=== PATIENT | male | born 1975 | race Caucasian/White ===

== ENCOUNTER 2018-09-11 18:43 | Emergency (ER) | payer OTHER ==
[~2018-09-11] VITALS: Ht 172.7 cm; Wt 88.6 kg
[~2018-09-11 18:43] MED LIST: MULTI-VITAMIN W1 TA2 PO
[2018-09-11 18:47] VITALS: BP 161/78; Ht 172.7 cm; Wt 88.6 kg
== END 2018-09-11 20:15 | disposition home or self-care (01) ==
LOC: ED 18:43
DX: S29.011A Strain of muscle and tendon of front wall of thorax, initial encounter (principal); W17.89XA Other fall from one level to another, initial encounter; Y93.E9 Activity, other interior property and clothing maintenance; Y92.89 Other specified places as the place of occurrence of the external cause; Y99.8 Other external cause status